=== PATIENT | male | born 1965 | race Caucasian/White ===

== ENCOUNTER 2017-02-28 04:21 | Emergency (ER) | payer OTHER ==
[~2017-02-28] VITALS: Ht 175.3 cm; Wt 165.0 kg
--- NOTE | 2017-02-28 04:31 | ERA ---
ER Documentation Chief Complaint Date/Time DATE: 02/28/17 TIME: 04:28 Chief Complaint Left facial numbness HPI The patient is a 51-year-old male, presenting to the ER because of acute left facial numbness, unable to close her left eye completely beginning about 1 AM while he was weak on the computer. His then gave him her antihypertensive medication. He denies blurred vision, diplopia, drooling, dysarthria, dysphonia , neck pain, chest pain, dyspnea, abdominal pain, vomiting, dysuria, diarrhea. He smokes and drinks, denies illicit drug Past medical history: Dyslipidemia, HTN Past surgical history: None ROS All systems reviewed and are negative except as per history of present illness. Medications Home Meds Active Scripts Mineral Oil/Lanolin Oil (Lacri-Lube) 3.5 Gm Oint, 1 APPLIC LEFT EYE NEEDED for DRY EYES, #1 EA Prov:BENSON CIFUENTES MD 02/28/17 Valacyclovir HCl (Valtrex) 1,000 Mg Tablet, 1000 MG PO TID for 7 Days, TAB Prov:BENSON CIFUENTES MD 02/28/17 Prednisone* (Prednisone*) 20 Mg Tab, 60 MG PO DAILY for 7 Days, TAB Prov:BENSON CIFUENTES MD 02/28/17 Prednisone* (Prednisone*) 20 Mg Tab, 60 MG PO DAILY for 5 Days, TAB Prov:BENSON CIFUENTES MD 02/28/17 Allergies Allergies: Coded Allergies: No Known Allergy (Unverified , 02/28/17) Physical Exam Vitals Vital Signs Date Time Temp Pulse Resp B/P Pulse Ox O2 Delivery O2 Flow Rate FiO2 02/28/17 04:33 98.9 85 18 185/111 96 Physical Exam Const: No acute distress. Head: Atraumatic.Left frontal muscle weakness Eyes: Normal Conjunctiva.Inability to close her left eye completely, no nystagmus ENT: Normal External Ears, Nose and Mouth. Neck: Full range of motion. No meningismus. Resp: Clear to auscultation bilaterally. Cardio: Regular rate and rhythm. Abd: Soft, non distended, normal bowel sounds, non tender. Skin: No petechiae or rashes. Back: No midline or flank tenderness. Ext: No cyanosis, or edema. Neur: Awake and alert. No focal deficit. Left facial droop, tongue is midline Psych: Normal Mood and Affect. Procedures/MDM MEDICAL MAKING DECISION: The patient is a 51-year-old male, presenting with acute Mota palsy, Acute accelerated hypertension He was treated with clonidine 0.2 mg p.o. for acute accelerated hypertension with good response. The differential diagnoses considered include but are not limited to subarachnoid hemorrhage, occult trauma, CVA, meningitis, encephalitis, hypertension, tension, migraine, cluster, narcotic withdrawal, cervical spine disease. Departure Diagnosis: Primary Impression: Mota's palsy Condition: Good Comments He was discharged with prednisone, valacyclovir,Lacrilube. He was advised to tape his eye shut in the evening during sleep I discussed the findings with the patient. I advised the patient to follow-up with the primary physician in about 1-2 days, sooner if needed and return if any concern. The patient's blood pressure was elevated (>120/80) but appears stable without evidence of hypertension emergency or urgency. The patient was counseled about the risks of hypertension and urged to pursue outpatient monitoring and therapy within a week with their primary care physician. BENSON CIFUENTES MD Feb 28, 2017 04:31
[2017-02-28 04:33] VITALS: Ht 175.3 cm; Wt 165.0 kg
[2017-02-28] MEDS ORDERED: VALA10004 PO (04:38)
[2017-02-28] MEDS ORDERED: PRED20TA PO (04:38)
[2017-02-28] MEDS ORDERED: LACR35O LEFT EYE (04:39)
--- NOTE | 2017-02-28 04:44 | RADRPT ---
PROCEDURE: Noncontrast CT Head. CLINICAL INDICATION: Headache. TECHNIQUE: Noncontrast CT of the head was obtained. The administered radiation dose was CTDI vol = 43 mGy, DLP = 720 mGy-cm. One or more of the following dose reduction techniques were used: automate d exposure control, adjustment of the mA and/or kV according to patient size and/or use of iterative reconstruction technique. COMPARISON: No pertinent prior examinations were submitted for comparison. FINDINGS: The ventricles and sulci are within normal limits. There is no acute intracranial hemorrhage or ext ra-axial fluid collection. There is no mass effect. No midline shift is identified. There is no loss of fierro-white differentiation to suggest acute infarction. The orbits are within normal limits. There is some moderate mucosal thickening within the left maxil iron sinus. No destructive osseous lesion is identified. IMPRESSION: No acute findings. RPTAT: HIKT .Fran Sutton MD, MD Date Time Electronically viewed and signed by .Fran Sutton MD, on 02/28/2017 04:43 .T/
[2017-02-28 05:02] VITALS: BP 169/84; PULSE 81; RESP 19; TEMP 98.1
== END 2017-02-28 05:04 | disposition home or self-care (01) ==
LOC: E/R 04:21
DX: G51.0 Bell's palsy (principal); I10 Essential (primary) hypertension; R40.2142 Coma scale, eyes open, spontaneous, at arrival to emergency department
CPT/HCPCS: 70450; Z7502; Z7610